=== PATIENT | female | born 1980 | race Caucasian/White ===

== ENCOUNTER 2016-11-10 09:13 | Observation (INO) | payer OTHER ==
[~2016-11-10] VITALS: Ht 175.3 cm; Wt 53.1 kg
[2016-11-10] VITALS (12 sets, daily range): BP systolic 110–145; BP diastolic 64–85; PULSE 66–85; RESP 12–17; O2SAT 95–100
[~2016-11-10 09:13] MED LIST: Dexamethasone 4 mg/mL Inj ONE; Glycopyrrolate 0.2 MG/ML 1mL Inj ONE; HYDROmorphone 1 mg/mL Inj ONE; MetoCLOpramide 5 mg/mL 2 mL Inj ONE; Neostigmine 1 mg/mL 10 mL Inj ONE; Ondansetron 2 mg/mL 2 mL Inj ONE; Propofol 10,000 mCg/mL 20 mL Inj ONE; Rocuronium 10 mg/mL 5 mL Inj ONE
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
[2016-11-10] MEDS ORDERED: Iohexol 300 mg/mL 30 mL Inj PO ONE (09:35)
[2016-11-10] MEDS ORDERED: 0.9% Sodium Chloride 1,000 ML IV ONE (09:35)
[2016-11-10] MEDS ORDERED: HYDROmorphone 0.5 mg/0.5 mL iSecure Syringe IVPUSH PRN (09:35)
[2016-11-10 09:42] LABS: BASOPHILS % (AUTO) 0.1 % (0-3); EOSINOPHILS % (AUTO) 0.5 % (0-5); MONOCYTES % (AUTO) 8.1 % (4-12); Mean Corpuscular Hemoglobin 33.3 pg (27.0-35.0); Mean Corpuscular Volume 91.5 fL (81-100); NEUTROPHILS % (AUTO) 73.6 % (40-74); Platelet Count 160 bil/L (150-400)
[2016-11-10 10:04] LABS: Magnesium 1.9 mg/dL (1.6-2.6)
--- NOTE | 2016-11-10 11:19 | DRSVH ---
PROCEDURE: CT ABDOMEN AND PELVIS WITH CONTRAST ([id number]) INDICATIONS: 36 year-old female with right lower quadrant abdominal pain. TECHNIQUE: After the administration of oral and intravenous contrast, 5 mm thick sections acquired from the diap hragms to the symphysis. 5 mm thick coronal and sagittal reformats were performed. For radiation do se reduction, the following was used: automated exposure control, adjustment of mA and/or kV accordi ng to patient size. COMPARISON: [facility], CT, CT ABD PELVIS W CON, 03/18/2015, 15:44. FINDINGS: Image quality: Excellent. ABDOMEN: Lung bases: Lung bases are clear. Heart size is normal. Solid organs: Liver and spleen are normal in size. Anterior right hepatic lobe hypodense lesion is too small to further characterize, but is unchanged since 2004, likely a tiny simple cyst. Gallbladde r wall thickness is normal. Biliary system is non-dilated. Pancreas enhances normally. No adrenal nodules. Kidneys are normal in size and enhancement, without hydronephrosis. Peritoneum and bowel: Stomach, small bowel, and colon loops are normal in caliber and wall thickness . The appendix is dilated up to 8 mm lateral to the cecal base, with significant surrounding soft ti ssue inflammatory fat stranding. There is small free pelvic fluid. On axial image 62, there is possib le small extraluminal gas near the appendiceal tip as well. Nodes and vessels: No retroperitoneal or mesenteric adenopathy. Aorta and inferior vena cava are no rmal in caliber. Miscellaneous: No ventral hernias. PELVIS: Genitourinary: Bladder wall thickness is normal. Uterus is normal in size. The ovaries are not well seen. Miscellaneous: No inguinal hernias or adenopathy. Bones: No suspicious bony lesions. No vertebral body compression fractures. IMPRESSION: Findings of acute appendicitis, with possible perforation. Findings were discussed with Dr. Garvin at 1116 hrs on November 10, 2016. Dictated by: Cruzito Rodrigez M.D. on 11/10/2016 at 11:09 Approved by: Cruzito Rodrigez M.D. on 11/10/2016 at 11:17
[2016-11-10] MEDS ORDERED: Piperacillin-Tazo 3.375 Gm Inj 3.375 GM in Dextrose 5% Minibag Plus 50 ML IV ONE (11:20)
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
[2016-11-10] MEDS ORDERED: Lactated Ringer's 1,000 ML IV ONE ×2 (12:07)
[2016-11-10] MEDS ORDERED: Bupivacaine-MPF 0.5% 30 mL Inj INFILTRATE ONE (12:24)
--- NOTE | 2016-11-10 14:32 | PCM.SURGPO ---
Immediate Operative Note Date of Surgery: Nov 10, 2016 Pre Operative Diagnosis Acute Appendicitis Post Operative Diagnosis Acute Nonperforated Appendicitis Procedure Laparoscopic Appendectomy Surgeon and Marine Firefighter Surgeon: Armida Melendez MD Assistants: Markell Croft, PAC Findings Retrocecal Appencitis, Mobile Cecum Complications There were no periprocedural complications identified. Surgical Specimen Removed: Yes Specimen sent to Pathology: Yes Anesthetic Administered: GA Grafts, Implants: None Output, Estimated Blood Loss: 1 Blood Admin during surgery: No Attending Statement Photo Print Specialist listed was medically necessary for the successful completion of the case Armida Melendez MD Nov 10, 2016 14:32
[2016-11-10] MEDS ORDERED: Sodium Chloride LOK Flush 10 mL Syringe IVFLUSH PRN (14:35)
--- NOTE | 2016-11-10 14:39 | PCM.DISURG ---
Surgical Discharge Instruction Date of Service Nov 10, 2016 Dates of Hospitalization Date of Hospital Admission Nov 10, 2016 at 11:45 Providers Admitting Physician: Armida Melendez MD Primary Care Physician: Nusrat Munoz ARNP Attending Physician: Armida Melendez MD Discharge Diagnosis Post Operative diagnosis Acute Nonperforated Appendicitis Diet Discharge Diet: No restrictions Activity Discharge Activity-General: No lifting >15 pounds for 2 weeks Dressing and Incisional Care Dressing Care: Remove outer dressing after 24 hrs Hygiene: May shower Follow Up Plan Follow-up Provider (F9): Markell Croft PA-C Follow-up appointment: Weeks (3) Call your provider for: Fever, Chills, Shortness of breath, Increasing abdominal pain, Nausea, Vomiting, Wound redness, Increasing wound pain, Warmth to touch, Discharge @ incision, pus discharge Armida Melendez MD Nov 10, 2016 14:39
[2016-11-10] MEDS ORDERED: POLY17PO6 PO (14:40)
[2016-11-10] MEDS ORDERED: OXYC5TAB72 PO (14:40)
[2016-11-10] MEDS ORDERED: Lactated Ringer's 1,000 ML IV SCH (14:58)
[2016-11-10] MEDS ORDERED: Lactated Ringer's 500 ML IV PRN (14:58)
[2016-11-10] MEDS ORDERED: fentaNYL-PF 50 mCg/mL 2 mL Inj IVPUSH PRN (15:00)
[2016-11-10] MEDS ORDERED: Labetalol 5 mg/mL 20 mL Inj IV PRN (15:00)
[2016-11-10] MEDS ORDERED: Dexamethasone 4 mg/mL Inj IVPUSH PRN (15:00)
[2016-11-10] MEDS ORDERED: EPHEDrine Sulfate 50 mg/mL Inj IVPUSH PRN (15:00)
[2016-11-10] MEDS ORDERED: Ondansetron 2 mg/mL 2 mL Inj IVPUSH PRN (15:00)
[2016-11-10] MEDS ORDERED: Phenylephrine 10,000 mCg/mL Inj IVPUSH PRN (15:00)
[2016-11-10] MEDS ORDERED: HYDROmorphone 1 mg/mL Inj IVPUSH PRN (15:00)
[2016-11-10] MEDS ORDERED: MetoCLOpramide 5 mg/mL 2 mL Inj IVPUSH PRN (15:00)
--- NOTE | 2016-11-10 15:00 | PCM.ANEP1 ---
Post Anesthesia PACU Phase 1 Assessment Vital Signs Vital Signs Date Time Temp Pulse Resp B/P Pulse Ox O2 Delivery O2 Flow Rate FiO2 11/10/16 12:10 36.5 79 14 123/71 100 Room Air 11/10/16 11:32 36.5 79 14 123/71 100 Room Air 11/10/16 09:16 36.8 66 12 119/85 100 Room Air Anesthetic Administered: GA Level of Alertness: Awake, talking Pain: No Nausea or Vomiting: No CV Function & Hydration Stable: Yes Airway Device: Lungs: Normal Air Movement PACU Phase 2 Assessment Patient Instructions Provided: N/A Ran Hinkle MD Nov 10, 2016 15:00
--- NOTE | 2016-11-10 16:10 | NUR ---
Post op Patient received to room 1030 from surgery s/p lap appendectomy . Patient has 3 lap site cdi, slight nausea and pain upon transfer from [facility] to bed but improved since settled. Patient oriented to call more and enc to call when needs to get up to void and agrees to do so. at bedside.
--- NOTE | 2016-11-10 17:13 | NUR ---
Social Work- Screening/ Readiness for D/C Data: EMR reviewed. Pt is a 36 year old female admitted under observation status 11/10/16 for appendicitis per H&P. Pt's insurance is [place] [employer] [facility]. Pt's PCP is OMAR Kay. Pt's readmit risk score is not listed at this time. SW met with pt and pt's mother at bedside regarding d/c planning. Pt was extremely nauseous during this assessment and did not participate in this assessment. Pt resides in [facility] with her and two children (ages 9 and 6). 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 Pt drives. Pt has no DPOA on file, pt refused DPOA paperwork upon admission. Pt's mother lives next door and will assist at home as needed. Pt to d/c home with her family to transport via POV. SW wrote phone number and plan on whiteboard, encouraged contact if needs arise. SW will continue to follow. Assessment: Pt who is independent with ADLs and self-care Plan: Pt to d/c home with her family to transport via POV. SW will continue to follow. Chelsea Chavez MSW
[2016-11-10] MEDS: Ondansetron 2 mg/mL 2 mL Inj IVPUSH PRN ×2 (17:19→20:11)
--- NOTE | 2016-11-10 19:29 | OP ---
[address] [address] OPERATIVE REPORT PATIENT: QIANA GOODMAN : 1980 MR#: [id number] ADMIT: 11/10/2016 JOB ID: [id number] DATE OF SURGERY: 11/10/2016 PREOPERATIVE DIAGNOSIS(ES): Acute appendicitis. POSTOPERATIVE DIAGNOSIS(ES): Acute nonperforated cecal appendicitis. PROCEDURE PERFORMED: Laparoscopic appendectomy. SURGEON: Armida Melendez MD. LIGHTING DIRECTOR: Markell Croft PA-C. COMPLICATIONS: None. CONDITION OF THE PATIENT: Stable. INDICATIONS: The patient is a 36-year-old lady who presented to the emergency department with three days of abdominal pain and was found to have a white count of 10.[address] showing up to 8 mm dilation of the appendix with surrounding fat stranding. After discussing the risks, benefits, and alternatives, she was brought to the operating room for laparoscopic appendectomy after getting antibiotics. PROCEDURE DETAILS: She was placed in supine position and underwent smooth induction of general anesthesia, had a Mcgarry catheter placed. Abdomen was prepped and draped in usual sterile fashion. Surgical time-out was undertaken using safety checklist, and all were in agreement. I began by making an infraumbilical incision, entered the abdomen using open Lisa technique and I insufflated with a 5 mm port. I then placed a 5 mm port in the suprapubic location and upsized the umbilical port to a 12. After that, I placed another 5 mm port in the left lower quadrant and identified the inflamed appendix which was stuck to the lateral aspect of the cecum. I took down the adhesions off the appendix to the right paracolic gutter. The cecum was surprisingly mobile, but the appendix itself was in a retrocecal position laterally. I meticulously dissected the appendix off the cecum with a combination of blunt and sharp dissection to make sure I am not injuring the colon. After mobilizing it off the side wall of the cecum inferiorly, I was able to identify the mesoappendix which I controlled with electrocautery. As I followed this towards the appendiceal base, the base appeared noninflamed and thin. After dissecting down to healthy base, I controlled the base of the appendix with Endoloops x2 on the patient's side and on the specimen side and divided it in between and put it in an EndoCatch bag. After that, I irrigated and suctioned out the fluid from the right lower quadrant and pelvis and removed the specimen and after desufflating the abdomen closed the umbilical port fascia with [id number] 0-Vicryl suture. The skin was reapproximated with 4-0 Monocryl. Steri-Strips and sterile dressing were applied. Patient was recovered from anesthesia and was taken to the recovery room in stable condition.
[2016-11-10] MEDS ORDERED: diphenhydrAMINE 25 mg Capsule PO ONE (21:00)
--- NOTE | 2016-11-11 02:43 | NUR ---
Pain/Activity/Sleep Patient rating abd pain a 3/10 prior to bed. Requesting only 650mg PO of Tylenol. Refused offer for Oxycodone PO. Up with SBA to BR. Tolerating well. Gait steady. One episode of emesis. Patient states she feels better and was able to eat most of dinner w/o issue afterwards. Requesting sleep aide, Dr. Melendez paged and order for Benadryl 25 mg PO received.
[2016-11-11 05:10] VITALS: BP 118/67; PULSE 64; RESP 16; O2SAT 97
[2016-11-11 08:27] VITALS: BP 135/94; PULSE 70; RESP 16; O2SAT 97
[2016-11-11] MEDS ORDERED: Polyethylene Glycol (PEG) 17 Gm Powder PO SCH (08:30)
--- NOTE | 2016-11-11 10:21 | PCM.PNSURG ---
Subjective Date of Service: Nov 11, 2016 Date of Service: Nov 11, 2016 Visit Information: Reason for Visit Acute nonperforated cecal appendicitis. Surgery/Surgery Date Post-Op Day # 1 Laparoscopic appendectomy Date of Admission: Nov 10, 2016 at 11:45 Hospital Day # Subjective: Denies any significant related pain, nausea, vomiting, & tolerating a normal diet. The patient is ambulating independently and would like to go home reporting a history a propensity for constipation & nausea. Postop General: No Complaints Gastrointestinal: Good Appetite, No N/V Pain Management: Good Pain Control, No or Minimal Pain Postop Activity: Ambulating Independently Objective Vital Sign- Last 8 Hours Date Time Temp Pulse Resp B/P Pulse Ox O2 Delivery O2 Flow Rate FiO2 11/11/16 08:27 36.9 70 16 135/94 97 Room Air 11/11/16 05:10 36.7 64 16 118/67 97 Room Air Intake and Output- Last 8 Hour 11/11/16 Cumulative From/Thru 07:00 11/10/16 09:16 - 11/11/16 05:59 Intake Total 600 ml 2800 ml Output Total 2300 ml 2801 ml Balance -1700 ml -1 ml Intake Oral 600 ml 800 ml IV Total 2000 ml Output Urine Total 2200 ml 2700 ml Emesis 100 ml 100 ml Estimated Blood Loss 1 ml # Bowel Movements 0 0 General: Alert, Oriented X3, Cooperative, No Acute Distress Lungs: Clear to Auscultation Heart: Exam Unremarkable Abdomen: Soft, Appropriately tender, Non-distended SURGICAL WOUND : Wound General Appearence: Steri Strips, Intact, Well Approximated, No Erythema, No Discharge, No Inflammatory Changes Extremities: Thigh&Calf Soft/Nontender Neuro: Normal Speech Result Diagram: 11/10/16 0935 11/10/16 0935 Assessment & Plan Impression Primary Diagnoses: 1. Acute nonperforated cecal appendicitis. 2. Status post laparoscopic appendectomy. POD # 1 well and stable for discharge home today. Other Medical & Surgical History: Nephrolithiasis UTI History of hypertension History of pediatric asthma Headaches Anxiety History of Problems: Plan 1. RN give all instructions. 2. DC home today. 3. Follow-up in outpatient general surgery clinic as directed or sooner if needed. Pain Management: Minimal by mouth oxycodone when necessary [facility] copies to: Nusrat Munoz ARNP [place], Scott PA-C Nov 11, 2016 10:21
[2016-11-11] MEDS ORDERED: ONDA4TAB9 PO (10:33)
--- NOTE | 2016-11-11 10:40 | PCM.DC.SUR ---
Discharge Summary Date of Service: Nov 11, 2016 Date of Hospital Admission: Nov 10, 2016 at 11:45 Date of Operation(s): 11/10/2016 Date of Discharge: 11/11/2016 Diagnosis at Time of Discharge Primary Diagnoses: 1. Acute nonperforated cecal appendicitis. 2. Status post laparoscopic appendectomy. Other Medical & Surgical History: Nephrolithiasis UTI History of hypertension History of pediatric asthma Headaches Anxiety History of Problems: Operation Laparoscopic appendectomy Brief History and Physical: Porsha Wang is a 36 [id number] who presented to the [facility] ED after going to the urgent care with complaints of RLQ abdominal pain onset 11/08/2016. Patient notes that the pain came on suddenly. She describes the pain as a deep ache with a 6/10 severity which slowly increased to 8/10 severity as the day progressed. Patient notes associated nausea and decreased appetite. Yesterday, , the patient states that she also began to have flu-like symptoms with body aches and feeling generally unwell. The pain has since progressively gotten worse. She notes that the pain is exacerbated with movements, including bending or twisting. Denies any vomiting. Prior to this episode the patient states that she was otherwise well. She denies any prior abdominal surgeries. Hospital Course: The patient was admitted with a history, presentation, & workup consistent with the above listed diagnoses, & underwent the above-mentioned surgical procedure without complication. See operative report for details of the procedure. After surgery the patient convalesced appropriately. Her post-surgical recovery was uneventful. The patient was stable for discharge on postoperative day #1 per her Attending General Surgeon. At the time of discharge the patient was voiding without difficulty, tolerating a normal diet without nausea or vomiting, her pain was controlled with only minimal oral analgesics, wounds were clean, dry, & intact without signs of infection, inflammation, &/or hematoma. We discussed and the patient verbalized understanding all the postoperative care & medication instructions, follow-up, & when to seek immediate medical attention. All questions were answered. The patient was also discharged with prescriptions for oxycodone, MiraLAX, & Zofran. Disposition: Home in stable condition on postoperative day #1. Follow-up Plan: Follow-up with physician respiratory therapy assistant in outpatient general surgery clinic in 2-3 weeks for wound check and postsurgical reevaluation. Ondansetron ODT (Zofran ODT) 4 Mg Tablet 4 MG PO TID PRN PRN For Nausea Polyethylene Glycol 3350 (Miralax) 17 Gm Powd.pack 17 GM PO DAILY oxyCODONE (oxyCODONE) 5 Mg Tablet 2.5-5 MG PO Q4H PRN PRN For Pain Discharge Medications: See above copies to: Nusrat Munoz,Dc Lobo PA-C Nov 11, 2016 10:40
--- NOTE | 2016-11-11 12:44 | NUR ---
dc: Pt passing gas and ambulating in hallway. Pain minimal with use of Tylenol only. Eating well, with no nausea. Dc instructions given to pt and and acknowlegment of understanding received. Iv dc's cannula intact. Scripts with pt in dc folder. Pt dc'd to private vehicle at approx 1110.
--- NOTE | 2016-11-14 16:56 | PATH ---
SURGICAL PATHOLOGY Attending Physician:Armida Melendez MD CASE STATUS: Signed Out PATIENT NAME: QIANA GOODMAN PID: [id number] : 1980 DATE COLLECTED:11/10/2016 00:00 SPECIMEN: Appendix CLINICAL HISTORY: ACUTE APPENDIX 1). APPENDIX FINAL DIAGNOSIS: Appendix, Appendectomy: Acute appendicitis. Negative for neoplasm.- ICD10: K35.80 GROSS DESCRIPTION: The specimen is received in formalin, labeled with the patient's name, sublabeled as appendix, and consists of an intact appendix (length-4.7 cm, diameter-0.8) with attached mesoappendix (up to 0.8 cm in depth). The resection margin is received open. The serosa is modi smooth, shiny, and partially covered in bright white flaky friable exudate. The lumen contains salcido solid soft material. The wall is up to 0.2 cm thick. No nodules, masses or lesions are identified. Ink code: black-resection margin. Section code: (A) appendix, serially sectioned, solar sales representative and assessor, resection margin enface; (B) tip, bivalved, one half submitted. 11/12/16 ICD-9 CODES: CPT CODES: 1: 56657 Electronically Signed Out Alber Sadler MD, Ph.D. [facility], [place] [address] Technical component performed at [facility], [address] [place] [address] [address], [place], [address]
== END 2016-11-11 11:10 | disposition home or self-care (01) ==
LOC: SED 09:13 → OSC 11:45
PROVIDERS: ADMIT Student in an Organized Health Care Education/Training Program; ATTEND Student in an Organized Health Care Education/Training Program
DX: K35.80 Unspecified acute appendicitis (principal); G89.18 Other acute postprocedural pain; I10 Essential (primary) hypertension; J45.909 Unspecified asthma, uncomplicated; F41.9 Anxiety disorder, unspecified; Z88.8 Allergy status to other drugs, medicaments and biological substances; Z87.442 Personal history of urinary calculi; Z86.69 Personal history of other diseases of the nervous system and sense organs
CPT/HCPCS: 36415; 44970; 74177; 80053; 81025; 83690; 83735; 85025; 96361; 96365; 96375; 96376; 99285; G0378; J1100; J1170; J2405; J2543; J2704; J2710; J2765; J7030; J7120; Q9967